=== PATIENT | male | born 1995 | race Caucasian/White ===

== ENCOUNTER 2025-07-13 17:49 | Emergency (ER) | payer BC ==
[2025-07-13] MEDS: Lidocaine 2% Viscous Solution 15 ML UD PO ONE (18:48)
[2025-07-13] MEDS: Benzocaine 20% Topical Spray UD MUCMEM ONE (18:48)
== END 2025-07-13 19:01 | disposition home or self-care (01) ==
LOC: EDBD 17:49 → MW.ED 17:49
DX: K04.7 Periapical abscess without sinus (principal); F17.200 Nicotine dependence, unspecified, uncomplicated; Z75.3 Unavailability and inaccessibility of health-care facilities
CPT/HCPCS: 41800; 99282; A9270; J3490; 99284